=== PATIENT | female | born 1955 | race Caucasian/White ===

== ENCOUNTER 2017-10-09 06:55 | Day surgery (SDC) | payer MEDICARE, OTHER ==
[~2017-10-09] VITALS: Ht 160 cm; Wt 66.7 kg
[~2017-10-09 06:55] MED LIST: AMLODIPINE BESYL5 MG PO; AZATHIOPRINE50 MG; BUSPIRONE HCL5 MG PO; COZAAR50 MG PO; ECPIRIN325 MG PO; EVZIO0.4 MG/0.4; HYDROXYCHLOROQ200 MG PO; LASIX40 MG PO; METOPROLOL SUC100 MG PO; MORPHINE SULFAT30 M2; MS CONTIN15 MG PO; PREDNISONE10 M1 PO; VITAMIN D400 UNIT PO; XANAX0.5 MG PO
--- NOTE | 2017-10-09 11:19 | NUR ---
10/09/17 1119 Milady Sands 1112 PATIENT ARRIVES TO PACU AWAKE, ALERT AND ORIENTED X3. RESP EVEN AND UNLABORED, ON ROOM AIR. PATIENT DENIES PAIN AND NAUSEA.
--- NOTE | 2017-10-10 08:29 | OR ---
[facility] [address], [place] [address] Signed DATE OF OPERATION: 10/09/2017 SURGEON: Trista Palomo MD PREOPERATIVE DIAGNOSES: 1. Multiple fungating skin lesions including right inner upper thigh x3. 2. Systemic lupus erythematosus. 3. Chronic immunosuppression. POSTOPERATIVE DIAGNOSES: 1. Multiple fungating skin lesions including right inner upper thigh x3. 2. Systemic lupus erythematosus. 3. Chronic immunosuppression. PROCEDURE: Excision of 3 upper inner right skin lesions. INDICATIONS: Razia is a 62-year-old female, who has had lupus for many years and has been on immunosuppression. As a result, she has multiple fungating skin lesions. I removed quite a number of them in her left groin previously and of course it came back squamous cell carcinoma. Her chief client officer lives about an hour away, so she asked if I could help her here locally and remove various skin lesions over time. She had 3 in the right upper inner thigh next to the groin crease and they are quite troublesome. She wanted me to excise those as well. She came today for her gynecologic procedure with Dr. Liu and therefore, I was asked to come in afterwards to excise those 3 lesions while she was under anesthetic. Razia is very aware of the elliptical incisions required to remove the lesions. She understands there is risk including, but not limited to, bleeding, infection, scarring, change in contour of the skin as well as possible need for additional surgery and/or remove other lesions. She had expressed understanding and wished to proceed. PROCEDURE NOTE: Razia was already in the prepped and draped in the lithotomy position. After Dr. Liu surgery was completed, I had scrubbed in for her skin lesions that Razia and I had identified those in the preop area and circled those appropriately. There were easily identified once again. Local anesthetic was injected in and underneath the lesions. Three elliptical incisions were utilized obliquely to remove those lesions full thickness and sent off to the Pathology Department separately. The skin and dermis were then closed with interrupted 3-0 subcuticular Monocryl sutures. Dry gauze and tape were Electronically Signed By: TRISTA PALOMO MD 10/10/17 0829 PATIENT NAME: RAZIA THURMAN OPERATIVE REPORT DATE OF : 55 REPORT #: [id number] PHYSICIAN: TRISTA PALOMO MD PCP: ESTEFANY ASHRAF REPORT IS CONFIDENTIAL AND NOT TO BE RELEASED WITHOUT AUTHORIZATION [address] [address] Signed then applied. One incision was about a centimeter wide. The other 2 were about 5 to 7 mm wide. After this, the procedure was terminated and I scrubbed out of the case. MD KAREEM Sanchez/GASTONL /[id number] cc: MD Trista Sweeney MD James D Ward [facility] Tomy Luna MD Copies: YAEL BILL MD, ANDREW L MD WARD, JAMES D DO QUACKENBUSH, ROBERT C MD ~ Electronically Signed By: TRISTA PALOMO MD 10/10/17 0829 PATIENT NAME: RAZIA THURMAN JEAN OPERATIVE REPORT DATE OF : 55 REPORT #: [id number] PHYSICIAN: TRISTA PALOMO MD PCP: ESTEFANY ASHRAF REPORT IS CONFIDENTIAL AND NOT TO BE RELEASED WITHOUT AUTHORIZATION
--- NOTE | 2017-10-10 22:47 | EKG ---
[facility] [address] [facility] [place] [address] Signed Poor data quality, interpretation may be adversely affected Normal sinus rhythm Possible Inferior infarct , age undetermined Abnormal ECG No previous ECGs available Confirmed by JEREMY GALLARDO MD ([id number]) on 10/10/2017 10:47:07 PM Electronically Signed By: JEREMY GALLARDO MD 10/10/17 2247 PATIENT NAME: RAZIA THURMAN Electrocardiogram DATE OF : 55 PHYSICIAN: JEREMY GALLARDO MD REPORT #: [id number] REPORT IS CONFIDENTIAL AND NOT TO BE RELEASED WITHOUT AUTHORIZATION
--- NOTE | 2017-10-23 13:12 | OR ---
[facility] [address] [place], [place] [address] Signed DATE OF OPERATION: 10/09/2017 SURGEON: Eric Liu DO PREOPERATIVE DIAGNOSES: 1. History of abnormal Pap with positive human papillomavirus. 2. Failed colposcopy in the office. 3. Left labial lesion. 4. Vulvar lesion. 5. Systemic lupus. POSTOPERATIVE DIAGNOSES: 1. History of abnormal Pap with positive human papillomavirus. 2. Failed colposcopy in the office. 3. Left labial lesion. 4. Vulvar lesion. 5. Systemic lupus. PROCEDURES PERFORMED: 1. Exam under anesthesia. 2. Colposcopy with cervical biopsies and ECC. 3. Left labial biopsy. 4. Vulvar biopsy. ANESTHESIA: MAC. ESTIMATED BLOOD LOSS: 10 mL. SPECIMENS: 1. Pap. 2. Cervical biopsies at 2, 4, 8 and 10 o'clock submitted individually. 3. Endocervical curettage. 4. Left labial biopsy. 5. Vulvar biopsy near the introitus at 7 o'clock. FINDINGS: Normal appearing cervix on colposcopy. The vagina is atrophic with good support. The cervix is actually able to be visualized without too much difficulty with conscious Electronically Signed By: ERIC LIU DO 10/23/17 1312 PATIENT NAME: RAZIA MONREAL OPERATIVE REPORT DATE OF : 55 REPORT #: [id number] PHYSICIAN: ERIC LIU DO PCP: ESTEFANY ASHRAF REPORT IS CONFIDENTIAL AND NOT TO BE RELEASED WITHOUT AUTHORIZATION [facility] [address] [place], [place] [address] Signed sedation. Again, the cervix appeared normal with minimal acetowhite changes at 2 o'clock. No punctation, mosaicism, or other concerning lesions noted due to the history and difficulty of the exam. ECC and four-quadrant cervical biopsies were obtained as well as a repeat Pap. Left labia minora with lesion and vulvar plaque near the introitus at 7 o'clock, approximately 1 cm in diameter, biopsied in total. The patient also has a right groin lesion. Please see Dr. Ramirez's documentation for that. The patient would be a good candidate for a LEEP if that is required. COMPLICATIONS: None. INDICATIONS: Ms. Monreal is a pleasant 62-year-old female with a history of SLE with chronic immunosuppression. She had an abnormal Pap in 2004, that showed low-grade changes. She did not have a repeat Pap done until 2018, which was very difficult per her nurse practitioner, but returned no abnormal cells and HPV 16 positive. Colposcopy was attempted in the office, but due to her history of hip pain and benign hip mass, she was unable to tolerate this in the office. At that time, a colposcopy was also noted that she had a white plaque at the introitus at 7 o'clock and an abnormal lesion on the tip of the left labia. She was consented for exam under anesthesia, colposcopy and biopsies of vulvar introitus. Risks, benefits, and alternatives were discussed in detail with the patient. The patient understands and wishes to proceed with the procedure. TECHNIQUE: The patient was taken to the operating room where a time-out was performed to confirm correct patient, correct procedure. Ancef 2 g preoperatively were given per Dr. Ramirez's order as he is also performing an excision of a right groin lesion. No heparin was indicated. ICPs were on and running. The patient was positioned while she was still awake and maximal comfort with her left leg with no internal or external rotation. Her right leg is able to externally rotate and flex, and the patient was comfortable with this positioning prior to induction of MAC. Positioning was unchanged throughout the procedure. The perineum and vagina were prepped with Betadine and attention was turned to the colposcopy. A narrow Graves speculum was placed in the vagina and the cervix was visualized. No masses or lesions noted on the cervix. Acetic acid was applied to the cervix and very minimal acetowhite changes were noted at 2 o'clock. No high-grade lesions or acetowhite changes were noted. There was no mosaicism or punctuation or again other high-risk changes noted. A repeat Pap was performed as the nurse practitioner obtained this was unsure if she was able to get a good sample. Decision was made given the patient's complex medical history as well as the difficulty of in-office evaluation to perform cervical biopsies in four quadrants randomly. These were performed at 2, 4, 8 and 10 o'clock and were Electronically Signed By: ERIC LIU DO 10/23/17 1312 PATIENT NAME: RAZIA MONREAL OPERATIVE REPORT DATE OF : 55 REPORT #: [id number] PHYSICIAN: ERIC LIU DO PCP: ESTEFANY ASHRAF REPORT IS CONFIDENTIAL AND NOT TO BE RELEASED WITHOUT AUTHORIZATION [address] [address] Signed each submitted individually. Lugol's was applied to the cervix and upper vagina. No additional lesions were noted. Monsel's solution was applied to the cervix and good hemostasis was appreciated. The speculum was removed and attention was turned to the vulvar lesion. A 1 cm vulvar lesion was noted at 7 o'clock near the introitus. A 0.25% Marcaine with epinephrine was infiltrated here and at the left labia and the lesion was grasped, elevated, and removed using a needlepoint cautery with approximately 5 mm margins. Good hemostasis was appreciated and the wound was closed in two layers with 3-0 Vicryl with good hemostasis and cosmesis. Attention was then turned to the left labia, which had been previously infiltrated with local anesthetic. The tip of the left labia was examined and again found to be abnormal and this was removed using needlepoint electrocautery with good hemostasis. A stitch of 3-0 Vicryl in a running locked manner was applied with again good hemostasis and no sign of hematoma or other abnormality. Sponge, needle, and instrument count were correct at the end of the procedure. Dr. Ramirez then presented for his portion of the procedure. Please see his documentation. Eric Liu DO JDW/MODL /[id number] Copies: ~ Electronically Signed By: ERIC LIU DO 10/23/17 1312 PATIENT NAME: RAZIA MONREAL OPERATIVE REPORT DATE OF : 55 REPORT #: [id number] PHYSICIAN: ERIC LIU DO PCP: ESTEFANY ASHRAF REPORT IS CONFIDENTIAL AND NOT TO BE RELEASED WITHOUT AUTHORIZATION
== END 2017-10-09 12:05 | disposition home or self-care (01) ==
LOC: DS 06:55 → OPS 06:55 → DS 08:45 → OPS 12:05
PROVIDERS: Colon & Rectal Surgery; Obstetrics & Gynecology
PROC: 0UBC8ZX Excision of Cervix, Via Natural or Artificial Opening Endoscopic, Diagnostic (ICD-10-PCS; principal; 2017-10-09 08:45)
PROC: 0UBMXZX Excision of Vulva, External Approach, Diagnostic (ICD-10-PCS; 2017-10-09 08:45)
PROC: 0HBHXZZ Excision of Right Upper Leg Skin, External Approach (ICD-10-PCS; 2017-10-09 08:45)
DX: N90.3 Dysplasia of vulva, unspecified (principal); N72 Inflammatory disease of cervix uteri; R87.810 Cervical high risk human papillomavirus (HPV) DNA test positive; R87.610 Atypical squamous cells of undetermined significance on cytologic smear of cervix (ASC-US); L57.0 Actinic keratosis; Z85.828 Personal history of other malignant neoplasm of skin; Z66 Do not resuscitate; F41.9 Anxiety disorder, unspecified; G89.29 Other chronic pain; M81.0 Age-related osteoporosis without current pathological fracture; M32.9 Systemic lupus erythematosus, unspecified; F17.210 Nicotine dependence, cigarettes, uncomplicated; F32.9 Major depressive disorder, single episode, unspecified; M19.90 Unspecified osteoarthritis, unspecified site; Z88.2 Allergy status to sulfonamides; Z88.8 Allergy status to other drugs, medicaments and biological substances; Z79.52 Long term (current) use of systemic steroids; Z79.899 Other long term (current) drug therapy
CPT/HCPCS: 00940; 88305; 93005; 93010; J0690; J1720; J1885; J2250; J2405; J2704; J3010; J7120

== ENCOUNTER 2018-09-01 10:37 | Emergency (ER) | payer MEDICARE, MEDICAID ==
[~2018-09-01] VITALS: Ht 160 cm; Wt 66.7 kg
--- OUTSIDE RECORDS SUMMARY | 2018-09-01 10:40 | XMS ---
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 Babar has no Care Guidelines for this patient. Raquel VISIT COUNT (12 MO.) 1 [facility] TOTAL 1 NOTE: Visits indicate total known visits. ED/C VISIT TRACKING (12 MO.) 09/01/2018 10:38 [facility] [place] TYPE: Emergency COMPLAINT: - DIFFICULTY BREATHING INPATIENT VISIT TRACKING (12 MO.) No inpatient visits to display in this time frame [id number]
[2018-09-01] MEDS ORDERED: ZOFRAN4 MG PO (11:06)
[2018-09-01] MEDS ORDERED: VISTARIL25 MG PO (11:08)
[2018-09-03] MEDS ORDERED: PROMETHAZI6.25 MG/5 PO (14:11)
== END 2018-09-01 13:28 | disposition home or self-care (01) ==
LOC: ED 10:37
DX: C76.3 Malignant neoplasm of pelvis (principal); R18.8 Other ascites; E86.0 Dehydration; I10 Essential (primary) hypertension; F17.200 Nicotine dependence, unspecified, uncomplicated; Z88.2 Allergy status to sulfonamides; Z88.8 Allergy status to other drugs, medicaments and biological substances; Z79.899 Other long term (current) drug therapy; Z79.891 Long term (current) use of opiate analgesic
CPT/HCPCS: 71045; 80053; 81001; 85025; 96361; 96374; 99284-25; J2405; J7040

== ENCOUNTER 2018-09-11 20:18 | Inpatient (IN) | payer MEDICARE, MEDICAID ==
[~2018-09-11] VITALS: Ht 160 cm; Wt 65.0 kg
--- OUTSIDE RECORDS SUMMARY | ~2018-09-11 | XMS | Encounter Summary ---
Demographics + + + | Address | [address] | | | [place] [address] | + + + | Home Phone | | + + + | Preferred Language | Unknown | + + + | Marital Status | Single | + + + | Denominational Affiliation | Unknown | + + + | Race | Unknown | + + + | Ethnic Group | Unknown | + + + Author + + + | Author | [facility] [employer] | + + + | Organization | [facility] [employer] | + + + | Address | Unknown | + + + | Phone | Unavailable | + + + Support + + +---------+ + | Name | Relationship | Address | Phone | + + +---------+ + | Luis Daniel Monreal | ECON | Unknown | | + + +---------+ + | Kiah Medina | ECON | Unknown | | + + +---------+ + Care Team Providers + +------+ + | Care Snuff Container Inspector Name | Role | Phone | + +------+ + | Zeeshan Carlson MD | PCP | | + +------+ + Reason for Visit + + + | Reason | Comments | + + + | Labs Only | 09/01/18 Dr. Kia Callahan | + + + Encounter Details +--------+ + + + + | Date | Type | Department | Care Team | Description | +--------+ + + + + | 09/02/ | Documentati | [facility] | Rad | Rolando Only (09/01/18 | | 2019 | on Only | [place] [address] | [address] | Dr. Kia Callahan) | | | | [address] | | | | | | [place] [address] | | | | | | [phone] | | | +--------+ + + + + Social History + +-------+ +--------+------+ | Tobacco Use | Types | Packs/Day | Years | Date | | | | | Used | | + +-------+ +--------+------+ | Former Smoker | | | | | + +-------+ +--------+------+ + +---+---+---+ | Smokeless Tobacco: | | | | | Never Used | | | | + +---+---+---+ + + +---------+ + | Alcohol Use | Drinks/We | oz/Week | Comments | | | ek | | | + + +---------+ + | No | | | | + + +---------+ + + + + | Sex Assigned at | Date Recorded | | | | + + + | Not on file | | + + + as of this encounter Plan of Treatment +--------+---------+ + + + | Date | Type | Specialty | Care Team | Description | +--------+---------+ + + + | 12/11/ | Office | Nephrology | Kalpesh Lester, | | | 2019 | Visit | | [facility] | | | | | | [address] | | | | | | [place] [address] | | | | | | [phone] | | | | | | | | +--------+---------+ + + + as of this encounter Procedures + +--------+ + + + | Procedure Name | Priori | Date/Time | Associated Diagnosis | Comments | | | ty | | | | + +--------+ + + + | PROTEIN / CREATININE | Routin | 09/01/2018 | | Results for this | | RATIO, URINE | e | 11:30 AM | | procedure are in the | | | | PST | | results section. | + +--------+ + + + | URINE MICROSCOPIC | Routin | 09/01/2018 | | Results for this | | ONLY | e | 11:30 AM | | procedure are in the | | | | PST | | results section. | + +--------+ + + + | CBC W/AUTO DIFF | Routin | 09/01/2018 | | Results for this | | (REFLEX TO MANUAL) | e | 11:30 AM | | procedure are in the | | | | PST | | results section. | + +--------+ + + + | COMPREHENSIVE | Routin | 09/01/2018 | | Results for this | | METABOLIC PANEL | e | 11:30 AM | | procedure are in the | | | | PST | | results section. | + +--------+ + + + in this encounter Results Comprehensive metabolic panel (09/01/2018 11:30 AM) + +---------+ + + | Component | Value | Ref Range | Performed At | + +---------+ + + | GLUCOSE | 154 (A) | 70 - 100 mg/dL | | + +---------+ + + | BUN | 27 (A) | 6 - 23 mg/dL | | + +---------+ + + | CREATININE | 1.03 | 0.70 - 1.25 mg/dL | | + +---------+ + + | BUN/CREAT | 26.2 | 6.0 - 28.6 | | + +---------+ + + | CALCIUM | 9.1 | 8.5 - 10.3 mg/dL | | + +---------+ + + | TOTAL PROTEIN | 7.1 | 6.0 - 8.3 g/dL | | + +---------+ + + | Albumin | 3.5 | 3.5 - 5.0 | | + +---------+ + + | GLOBULIN | 3.6 (A) | 1.8 - 3.5 | | + +---------+ + + | A/G | 1.0 (A) | 1.1 - 2.4 | | + +---------+ + + | TBIL | 0.5 | 0.0 - 1.2 | | + +---------+ + + | ALK PHOS | 73 | 31 - 130 | | + +---------+ + + | ALT | 29 | 7 - 52 U/L | | + +---------+ + + | AST | 44 (A) | 13 - 39 U/L | | + +---------+ + + | SODIUM | 141 | 132 - 143 mmol/L | | + +---------+ + + | POTASSIUM | 3.4 (A) | 3.6 - 5.1 mmol/L | | + +---------+ + + | CHLORIDE | 101 | 95 - 112 mmol/L | | + +---------+ + + | CO2 | 26 | 19 - 31 mmol/L | | + +---------+ + + | ANION GAP AGAP | 17.4 | 7 - 21 mmol/L | | + +---------+ + + | EGFR | 54 (A) | 60 - 140 mg/dL | | + +---------+ + + + + | Specimen | + + | Blood | + + CBC W/Auto Diff (Reflex to Manual) (09/01/2018 11:30 AM) + + + + + | Component | Value | Ref Range | Performed At | + + + + + | WBC | 20.4 (A) | 4.5 - 11.0 10^3/mL | | + + + + + | RBC | 4.30 | 3.8 - 5.1 10^6/ L | | + + + + + | HGB | 12.7 | 12.0 - 16.0 g/dL | | + + + + + | HCT | 38.4 | 35 - 45 % | | + + + + + | MCV | 89.4 | 81 - 99 fL | | + + + + + | MCH | 30 | 27 - 33 pg | | + + + + + | MCHC | 33 | 30 - 36 g/dL | | + + + + + | PLT | 248 | 140 - 440 K/ L | | + + + + + | RDW SD | 13.6 | 10.5 - 15.0 % | | + + + + + | MPV | | fL | | + + + + + | DIFF TYPE | | | | + + + + + | NEUTROPHILS | 77 | 39 - 80 % | | + + + + + | LYMPHOCYTES | 9 (A) | 24 - 44 % | | + + + + + | MONOCYTES | 3 | 0 - 12 % | | + + + + + | EOSINOPHILS | 0 | 0 - 6 % | | + + + + + | BASOPHILS | 0 | 0 - 2 % | | + + + + + | NEUTROPHILS ABS | | / L | | + + + + + | LYMPHOCYTES ABS | | / L | | + + + + + | MONOCYTES ABS | | / L | | + + + + + | EOSINOPHILS ABS | | / L | | + + + + + | BASOPHILS ABS | | / L | | + + + + + + + | Specimen | + + | Blood | + + Urine microscopic only (09/01/2018 11:30 AM) + + + + + | Component | Value | Ref Range | Performed At | + + + + + | COLOR UA | Yellow | | | + + + + + | CLARITY | Clear | | | + + + + + | Specific [place], UA | 1.015 | 1.005 - 1.030 | | + + + + + | LEUKOCYTE ESTERASE | Trace | | | + + + + + | NITRITE | Negative | | | + + + + + | UROBILINOGEN | Normal | | | + + + + + | PROTEIN | TraceComment: 30 | | | + + + + + | PH,URINE | 6 | 5 - 9 | | + + + + + | BLOOD | Negative | | | + + + + + | KETONES | Negative | | | + + + + + | BILIRUBIN | Negative | | | + + + + + | GLUCOSE | Negative | | | + + + + + + + | Specimen | + + | Urine | + + Protein / creatinine ratio, urine (09/01/2018 11:30 AM) + + + + + | Component | Value | Ref Range | Performed At | + + + + + | UR | 473.5 (A) | 0 - 150 | | | PROTEIN/CREATININE | | | | + + + + + + + | Specimen | + + | Urine - Urine, | | Unspecified Source | + + in this encounter Visit Diagnoses Not on filein this encounter"
--- OUTSIDE RECORDS SUMMARY | ~2018-09-11 | XMS | Encounter Summary ---
Demographics + + + | Address | [address] | | | [place] [address] | + + + | Home Phone | | + + + | Preferred Language | Unknown | + + + | Marital Status | Single | + + + | Mandaen Affiliation | Unknown | + + + | Race | Unknown | + + + | Ethnic Group | Unknown | + + + Author + + + | Author | [facility] [employer] | + + + | Organization | [facility] [employer] | + + + | Address [...] Team Providers + +------+ + | Care Excellence Specialist Name | Role | Phone | + [...] | | 2019 | on Only | [place] [address] | Dr. Kia Callahan) | | | | [address] | | | | | | [place] [address] | | | | | | [phone] | | | +--------+ + + + [...] [address] | | | | | | [place] [address] | | | | | | [phone] | | | | | | | [...] + + + + + | Specific [place], UA | 1.015 | 1.005 - 1.030 [...]
--- OUTSIDE RECORDS SUMMARY | ~2018-09-11 | XMS | Encounter Summary ---
Demographics + + + | Address | [address] | | | [place] [address] | + + + | Home Phone | | + + + | Preferred Language | Unknown | + + + | Marital Status | Single | + + + | Roman Catholic Affiliation | Unknown | + + + | Race | Unknown | + + + | Ethnic Group | Unknown | + + + Author + + + | Author | [facility] [employer] | + + + | Organization | [facility] [employer] | + + + | Address [...] Team Providers + +------+ + | Care Bicycle Assembler Name | Role | Phone | + [...] | | 2019 | on Only | [place] [address] | Dr. Kia Callahan) | | | | [address] | | | | | | [place] [address] | | | | | | [phone] | | | +--------+ + + + [...] [address] | | | | | | [place] [address] | | | | | | [phone] | | | | | | | [...] + + + + + | Specific [place], UA | 1.015 | 1.005 - 1.030 [...]
--- OUTSIDE RECORDS SUMMARY | ~2018-09-11 | XMS | Clinical Summary ---
Demographics + + + | Address | [address] | | | [place] [address] | + + + | Home Phone [...] Author + + + | Author | [facility] [employer] [facility] | + + + | Organization | [facility] [employer] [facility] | + + + | Address | Unknown | + + + | Phone | Unavailable | + + + Support + + +---------+ + | Name | Relationship | Address | Phone | + + +---------+ + | Luis Daniel Thurman | ECON | Unknown | | + + +---------+ + | Kiah Medina | ECON | Unknown | | + + +---------+ + Care Team Providers + +------+ + | Care Studio Designer Name | Role | Phone | + +------+ + | Zeeshan Carlson MD | PP | | + +------+ + Allergies + + + + + + | Active Allergy | Reactions | Severity | Noted | Comments | | | | | Date | | + + + + + + | Alendronate | Other (See Comments) | Medium | 10/08/19 | Bone pain | | | | | 17 | | + + + + + + | Sulfa Antibiotics | Other (See Comments) | Medium | 10/08/19 | Flare ups | | | | | 17 | | + + + + + + Current Medications + + +--------+---------+------+------+-------+ | Prescription | Sig. | Disp. | Refills | Star | End | Statu | | | | | | t | Date | s | | | | | | Date | | | + + +--------+---------+------+------+-------+ | BUSPIRONE HCL PO | Take 15 mg by mouth | | | | | Activ | | | 2 (two) times daily. | | | | | e | + + +--------+---------+------+------+-------+ | nicotine | Take 2 mg by mouth | | | | | Activ | | polacrilex | as needed for | | | | | e | | (NICORETTE) 2 MG gum | Smoking cessation. | | | | | | + + +--------+---------+------+------+-------+ | predniSONE | Take 2.5 mg by mouth | | | | | Activ | | (DELTASONE) 2.5 MG | 3 (three) times | | | | | e | | tablet | daily. | | | | | | + + +--------+---------+------+------+-------+ | Cholecalciferol | Take 2,000 Units by | | | | | Activ | | 2000 UNITS CAPS | mouth daily. | | | | | e | + + +--------+---------+------+------+-------+ | hydroxychloroquine | Take 200 mg by mouth | | | | | Activ | | (PLAQUENIL) 200 MG | 2 (two) times | | | | | e | | tablet | daily. | | | | | | + + +--------+---------+------+------+-------+ | furosemide (LASIX) | Take 40 mg by mouth | | | 12/0 | | Activ | | 40 MG tablet | daily. | | | 5/20 | | e | | | | | | 17 | | | + + +--------+---------+------+------+-------+ | losartan (COZAAR) | Take 50 mg by mouth | | | 11/3 | | Activ | | 50 MG tablet | daily. | | | 0/20 | | e | | | | | | 17 | | | + + +--------+---------+------+------+-------+ | metoprolol | TAKE 1 TABLET BY | 90 | 3 | 04/0 | | Activ | | (TOPROL-XL) 50 MG 24 | MOUTH DAILY | tablet | | 6/20 | | e | | hr tablet | | | | 18 | | | + + +--------+---------+------+------+-------+ | morphine (MS | | | | 11/2 | | Activ | | CONTIN) 30 MG 12 hr | | | | 7/20 | | e | | tablet | | | | 18 | | | + + +--------+---------+------+------+-------+ Active Problems + + + | Problem | Noted Date | + + + | Hypokalemia | 05/27/2018 | + + + | CKD (chronic kidney disease) stage 2, GFR 60-89 ml/min | 05/27/2018 | + + + | Nephrolithiasis | 10/07/2016 | + + + | Essential hypertension, benign | 10/07/2016 | + + + | Vitamin D deficiency | 10/07/2016 | + + + Encounters +--------+ + + + + | Date | Type | Specialty | Care Team | Description | +--------+ + + + + | 09/02/ | Documentati | | Rad, | Labs Only (09/01/18 | | 2019 | on Only | | [facility] | Dr. Kia Callahan) | +--------+ + + + + from Last 3 Months Immunizations + + + + | Name | Dates Previously Given | Next Due | + + + + | Influenza, Trivalent | 04/17/2005, 04/19/2004, 04/11/2003, | | | W/Preservative | 06/04/2002 | | + + + + | Pneumococcal | 04/19/2004 | | | Polysaccharide | | | | 23-valent | | | + + + + | Tdap | 01/29/2012 | | + + + + Family History + + +------+ + | Medical History | Relation | Name | Comments | + + +------+ + | Cancer | Mother | | Colon | + + +------+ + | Cancer | Sister | | Breast | + + +------+ + + +------+ + + | Relation | Name | Status | Comments | + +------+ + + | Father | | | | + +------+ + + | Mother | | | | + +------+ + + | Sister | | Alive | | + +------+ + + Social History + +-------+ +--------+------+ [...] on file | | + + + Last Filed Vital Signs + + + + | Vital Sign | Reading | Time Taken | + + + + | Blood Pressure | 128/84 | 05/27/2018 2:41 PM PST | + + + + | Pulse | 79 | 05/27/2018 2:41 PM PST | + + + + | Temperature | 36.8 C (98.3 F) | 12/10/2017 2:23 PM PDT | + + + + | Respiratory Rate | - | - | + + + + | Oxygen Saturation | 98% | 05/27/2018 2:41 PM PST | + + + + | Inhaled Oxygen | - | - | | Concentration | | | + + + + | Weight | 66.1 kg (145 lb 12.8 | 05/27/2018 2:41 PM PST | | | oz) | | + + + + | Height | 160 cm (5' 3") | 05/27/2018 2:41 PM PST | + + + + | Body Mass Index | 25.83 | 05/27/2018 2:41 PM PST | + + + + Plan of Treatment +--------+---------+ + + + | Date | Type | Specialty | Care Team | Description | +--------+---------+ + + + | 12/11/ | Office | | Kalpesh Lester, | | | 2019 | Visit | | [facility] | | | | | | [address] | | | | | | [place] [address] | | | | | | [phone] | | | | | | | | +--------+---------+ + + + + + + + + | Health Maintenance | Due Date | Last Done | Comments | + + + + + | Cervical Cancer | | | | | Screening (Pap) | 5 | | | + + + + + | Breast Cancer | | | | | Screening | 5 | | | | (Mammogram) | | | | + + + + + | Colon Cancer | | | | | Screening | 5 | | | | (Colonoscopy) | | | | + + + + + | Vaccine: Zoster (1 | | | | | of 2) | 5 | | | + + + + + | Vaccine: Influenza | | 04/17/2005, 04/19/2004, | | | (#1) | 8 | 04/11/2003, Additional history | | | | | exists | | + + + + + | Vaccine: | | 01/29/2012 | | | Dtap/Tdap/Td (2 - | 2 | | | | Td) | | | | + + + + + Procedures + +--------+ + + + | [...] section. | + +--------+ + + + from Last 3 Months Results Protein / creatinine ratio, urine (09/01/2018 11:30 [...] | | Unspecified Source | + + Urine microscopic only (09/01/2018 11:30 AM) + + + + + | Component | Value | Ref Range | Performed At | + + + + + | COLOR UA | Yellow | | | + + + + + | CLARITY | Clear | | | + + + + + | Specific [place], [place] | 1.015 | 1.005 - 1.030 [...] + + | Urine | + + CBC W/Auto Diff (Reflex [...] + + | Blood | + + Comprehensive metabolic panel (09/01/2018 11:30 AM) + [...] + + | Blood | + + from Last 3 Months Insurance + +--------+ +------+-------+ + | Payer | Benefi | Subscriber | Type | Phone | Address | | | t Plan | ID | | | | | | / | | | | | | | Group | | | | | + +--------+ +------+-------+ + | MEDICARE | MEDICA | [id number] | | | [address] | | | RE | | | | [place] [address] | | | IP-OP | | | | | + +--------+ +------+-------+ + + +--------+ +--------+ + + | Guarantor Name | Accoun | Relation to | Date | Phone | Billing Address | | | t Type | Patient | of | | | | | | | | | | + +--------+ +--------+ + + | RAZIA THURMAN | Person | Self [birth year] Home: | [address] | | | al/Fam | | 1955 | [phone] | [place] | | | l[place] | | | [phone] | [phone] | + +--------+ +--------+ + +
--- OUTSIDE RECORDS SUMMARY | ~2018-09-11 | XMS | Clinical Summary ---
Demographics + + + | Address | [address] | | | [place] [address] | + + + | Home Phone | | + + + | Preferred Language | Unknown | + + + | Marital Status | Single | + + + | Buddhism Affiliation | Unknown | + + + | Race | Unknown | + + + | Ethnic Group | Unknown | + + + Author + + + | Author | [facility] [facility] | + + + | Organization | [facility] [employer] | + + + | Address [...] Team Providers + +------+ + | Care List Of [employer] Name | Role | Phone | + [...] [address] | | | | | | [place] [address] | | | | | | [phone] | | | | | | | [...] + + + + + | Specific [place], [place] | 1.015 | 1.005 - 1.030 [...] +------+-------+ + | MEDICARE | MEDICA | [id number] | | | [address] | | | RE | | | | [place] [address] | | | IP-OP | | | [...] | | al/Fam | | 1955 | [phone] | [place] | | | l[place] | | | [address] | [phone] | + +--------+ +--------+ + +
--- OUTSIDE RECORDS SUMMARY | ~2018-09-11 | XMS | Clinical Summary ---
Demographics + + + | Address | [address] | | | [place] [address] | + + + | Home Phone | | + + + | Preferred Language | Unknown | + + + | Marital Status | Single | + + + | Denominational Affiliation | Unknown | + + + | Race | Unknown | + + + | Ethnic Group | Unknown | + + + Author + + + | Author | [facility] [facility] | + + + | Organization | [facility] [employer] [facility] | + + + | Address [...] Team Providers + +------+ + | Care Pulverizer Name | Role | Phone | + [...] [address] | | | | | | [place] [address] | | | | | | [phone] | | | | | | | [...] + + + + + | Specific [place], [place] | 1.015 | 1.005 - 1.030 [...] +------+-------+ + | MEDICARE | MEDICA | [id number] | | | [address] | | | RE | | | | [place] [address] | | | IP-OP | | | [...] | [place] | | | [address] | [phone] | + +--------+ +--------+ + +
[~2018-09-11 20:18] MED LIST changes: -MORPHINE SULFAT30 M2; +MORPHINE SULFAT30 M2 PO; +PROMETHAZI6.25 MG/5 PO; +VISTARIL25 MG PO; +ZOFRAN4 MG PO
--- OUTSIDE RECORDS SUMMARY | 2018-09-11 20:20 | XMS ---
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 Care History Medical/Surgical 09/02/2018 [facility] - Patient is currently established with [facility]. If patient is seen in the ED during business hours. Please contact [facility] at [facility]. Care Recommendation: This patient has had 5 or more Emergency Department visits in the last 12 months.\T\nbsp; Patient requires education on the scope and purpose of the ED as an acute care provider not a Primary Care Provider and should not be utilized for chronic conditions.\T\nbsp; These are guidelines and the provider should exercise clinical judgment when providing care. E.D. VISIT COUNT (12 MO.) 3 [facility] TOTAL 3 NOTE: Visits indicate total known visits. ED/UCC VISIT TRACKING (12 MO.) 09/11/2018 20:18 [facility] [place] TYPE: Emergency COMPLAINT: - NAUSEA 09/03/2018 10:24 [facility] [place] TYPE: Emergency COMPLAINT: - VOMITING DIAGNOSES: - Diaphragmatic hernia without obstruction or gangrene - Nicotine dependence, unspecified, uncomplicated - Secondary malignant neoplasm of unspecified lung - Other mcc (current) drug therapy - Vomiting, unspecified - Systemic lupus erythematosus, unspecified - Allergy status to sulfonamides status - Essential (primary) hypertension - Dehydration - Allergy status to other drugs, medicaments and biological substances status - Squamous cell carcinoma of skin of other part of trunk 09/01/2018 10:[address] [facility] [place] TYPE: Emergency COMPLAINT: - DIFFICULTY BREATHING DIAGNOSES: - nursing home (current) use of opiate analgesic - Dehydration - Essential (primary) hypertension - Allergy status to other drugs, medicaments and biological substances status - Allergy status to sulfonamides status - Malignant neoplasm of pelvis - Other mcc (current) drug therapy - Epigastric pain - Nicotine dependence, unspecified, uncomplicated - Other ascites INPATIENT VISIT TRACKING (12 MO.) No inpatient visits to display in this time frame [id number]
--- NOTE | 2018-09-12 02:25 | NUR ---
PT ARRIVED TO THE FLOOR, ASSISTED TO BED WITH SE MOE AND KIMBERLY SMITH, PT TOLERATED WELL, PT AOX4, APPROPRIATE, ASSESSMENT COMPLETE. PT'S IV FLUIDS INFUSING PER EMAR WNL, VSS, PT C/O -01/06 PAIN RELATED TO PT'S LEFT HIP, SWELLING/ 3+ PITTING EDEMA NOTED ON IN PT'S LEFT EXTREMITY, CAP REFILL SLOW, >5 SECONDS, DR. DOLAN NOTIFIED OF PT'S PAIN, RECEIVED ORDER FOR PT TO RECEIVE MORPHINE 15MG PRN BID FOR PAIN, NO OTHER NEW ORDERS. PT'S SKIN DRY, LOWER EXTREMITIES COOL, BRUISING AND ABRASIONS NOTED ON PT'S BLE. LOTION APPLIED TO PT'S LEGS PER REQUEST, NO FURTHER NEEDS AT THIS TIME, CALL LIGHT WITHIN REACH, FALL PRECAUTIONS IN PLACE.
--- NOTE | 2018-09-12 03:00 | NUR ---
PT ASSISTED FROM BED TO BSC WITH 2 PERSON ASSIST, PIVOT TO BSC, TOLERATED WELL, PT VOIDED 50 MLS OF CLEAR DARK YELLOW URINE, PT BACK TO BED, NO REQUESTS AT THIS TIME, CALL LIGHT WITHIN REACH.
--- NOTE | 2018-09-12 03:59 | NUR ---
PT GIVEN PRN PAIN MEDICATION PER EMAR FOR PAIN OF 7/10 RELATED TO LEFT HIP, PT CALLED INITIALLLY AFTER SHE STATED THAT SHE HAD CHOKED ON HER WATER, PT ENCOURAGED TO TAKE SMALL SIPS AND TO TUCK HER CHIN WHEN SWALLOWING. NO FURTHER REQUESTS AT THIS TIME, IV FLUIDS INFUSING PER EMAR WNL, CALL LIGHT WITHIN REACH.
--- NOTE | 2018-09-12 05:34 | NUR ---
UP TO BSC W 2 PA, PIVOTTING TO R SIDE. TOLERATED WELL, VOIDED, BACK TO BED, NO C/O PAIN, CALL LIGHT AND FLUIDS AT BEDSIDE
--- NOTE | 2018-09-12 06:13 | NUR ---
PT C/O NAUSEA, PT GIVEN PRN NAUSEA MEDICATION PER EMAR, TOLERATED WELL, NO FURTHER REQUESTS, IV FLUIDS INFUSING PER EMAR WNL, CALL LIGHT WITHIN REACH.
--- NOTE | 2018-09-12 06:34 | NUR ---
PT AOX4, APPROPRIATE, IV FLUIDS INFUSED PER EMAR WNL, PT GIVEN PRN PAIN MEDICATION X1 SINCE PATIENTS ARRIVAL, PT STATES HER PAIN IS USUALLY AROUND A 6 TO AN 8/10, SEE EMAR, PT ALSO GIVEN PRN NAUSEA MED X1 THIS SHIFT RELATED TO NAUSEA THIS AM, PT 2 PERSON ASSIST RELATED TO PT'S WEAKNESS IN LEFT LEG. VSS, CALLS APPROPRIATELY, ASPIRATION PRECAUTIONS WITH DRINKING, CLEAR LIQUID DIET.
--- NOTE | 2018-09-12 07:44 | NUR ---
Report recieved from Luis SAEZ. Pt sleeping at this time, call fierro within reach.
--- NOTE | 2018-09-12 09:00 | NUR ---
PT ASSISTED TO THE COMMODE WITH 2 PERSON ASSIST. PT TOLERATED FAIR. THE PT'S BEDDING WAS CHANGED IT WET FROM HER RIGHT LEG WEEPING.
--- NOTE | 2018-09-12 10:14 | NUR ---
Pt resting in her bed eating breakfast at this time. She states her nausea is well controlled and that her pain is a 6.5/10 and she declines pain medication at this time.
--- NOTE | 2018-09-12 11:33 | NUR ---
PT NOW STATES HER RIGHT ANKLE IS CAUSING SOME PAIN. THE SITE APPEARS UNCHANGED AND THE PT IS ASKING WHY IT HURTING. PT WAS MEDICATED ORDERED AND DR BURLESON WAS NOTIFIED OF THE PT'S PAIN AND CONDITION.
--- NOTE | 2018-09-12 11:35 | NUR ---
DR BURLESON TO THE ROOM SPEAKING WITH THE PT AT THIS TIME.
--- NOTE | 2018-09-12 12:09 | NUR ---
Pt helped to the commode and was a heavy two person assist. Pt voided and was helped back to bed. Right lower leg continues to weep and the bed was covered with chucks.
[2018-09-12] MEDS ORDERED: OMEPRAZOLE40 MG PO (12:30)
[2018-09-12] MEDS ORDERED: MORPHINE SULFAT15 MG PO (12:31)
[2018-09-12] MEDS ORDERED: PREDNISONE2.5 MG PO (12:33)
[2018-09-12] MEDS ORDERED: BUSPIRONE HCL30 MG PO (12:34)
[2018-09-12] MEDS ORDERED: METOPROLOL SUCC50 MG PO (12:35)
--- NOTE | 2018-09-12 12:51 | NUR ---
PATIENT REPORTS ELBOW CRUTHES WERE WITH HER WHEN SHE ARRIVED WITH EMS. LOOKED THROUGHOUT EMERGENCY ROOM AND IN PATIENT'S ROOM UNABLE TO LOCATE SAID CRUTCHES. CONTACTED EMS CREW THAT PROVIDED CARE TO PATIENT. CREW MEMEBER STATED " BECAUSE OF PATIENT'S DEGREE OF WEAKNESS AND METSTATIC CANCER WAS UNSURE IF PATIENT COULD EVEN USE THEM SO WE LEFT THEM BEHIND. THEY ARE SITTING IN A CORNER AT HER HOUSE". INFORMED PATIENT OF THIS, AND VERBALIZED UNDERSTANDING. PLANS TO HAVE BROTHER BRING THEM IN.
--- NOTE | 2018-09-12 13:38 | NUR ---
PATIENT UP TO [facility], 2 PERSON ASSIST WITH WALKER. PATIENT ABLE TO PIVOT TRANSFER WITH MINIMAL ASSIST. TOLERATED ACTIVITY WELL.
--- NOTE | 2018-09-12 14:16 | NUR ---
MED REC COMPLETE
--- NOTE | 2018-09-12 15:50 | NUR ---
Pt resting in her bed visiting with her brother. She states her pain level is acceptable at this time.
--- NOTE | 2018-09-12 18:06 | NUR ---
PT EATING DINNER AT THIS TIME. SHE STATES SHE IS DOING WELL AND HER CALL JC IS WITHIN REACH.
--- NOTE | 2018-09-12 19:20 | NUR ---
SHIFT REPORT RECEIVED. PATIENT RESTING IN BED WATCHING TV. PATIENT STATES "I'M DOING OKAY RIGHT NOW". DENIES NEEDS. CALL LIGHT IN REACH.
--- NOTE | 2018-09-12 20:54 | NUR ---
DINING ROOM COORDINATOR ROUNDING NOTE. PT RESTING IN BED VISITING WITH BROTHER AT BEDSIDE. PT BOOSTED IN BED. TOLERATED WELL. CALL LIGHT IN REACH. PRIMARY RN REMAINS IN ROOM.
--- NOTE | 2018-09-12 21:00 | NUR ---
PATIENT PROVIDED WITH HER EVENING MEDS. PATIENT'S BROTHER IS AT BEDSIDE. PATIENT RATES PAIN 7/10, SCHEDULED MORPHINE ER PROVIDED. PAIN IS CHRONIC, LEFT LEG/HIP, GROIN, AND ABD. PATIENT'S LUNGS ARE CLEAR. ABD IS MODERATELY DISTENDED, FIRM BUT NONTENDER. BOWEL SOUNDS HYPOACTIVE. BAM LOWER EXTREMITIES 2+ EDEMA, WORSE ON THE LEFT. RIGHT CAGE IS WEEPING, SEROUS FLUID. CHRONIC SIGNS OF POOR CIRCULATION IN BAM LOWER EXTREMITIES. BOTH ELEVATED ON PILLOW. HEEL PROTECTORS IN PLACE. IV FLUIDS PER ORDER, SITE WNL. PATIENT DENIES FURTHER NEEDS. CALL LIGHT IN REACH.
--- NOTE | 2018-09-12 22:00 | NUR ---
PATIENT REQUESTING ZOFRAN, STATES "I LIKE TO KEEP UP ON IT" BUT DENIES NAUSEA. PRN ZOFRAN PROVIDED PER REQUEST. PATIENT UP TO BSC, TOLERATED MODERATELY WELL WITH WALKER AND 1PA STAND PIVOT TO THE BSC. PATIENT BACK TO BED, PHOTOGRAPHY PROFESSOR IN ROOM FOR EVENING CARES.
--- NOTE | 2018-09-13 00:17 | NUR ---
ASSISTED PATIENT UP TO BSC. 1PA STAND PIVOT WITH FWW. PATIENT HAS SOME BALANCE ISSUES, REQUIRES SOME DIRECTION ON PROPER TRANSFER. PATIENT ASSISTED BACK TO BED, LEGS ELEVATED. PATIENT REPORTS BEING COMFORTABLE. CALL LIGHT IN REACH.
--- NOTE | 2018-09-13 03:15 | NUR ---
PATIENT RESTING IN BED. APPEARED TO BE SLEEPING. WOKE EASILY WHEN RN ENTERED ROOM. PATIENT REPORTS PAIN 7/10. DENIES NEED FOR ADDITIONAL PAIN MEDICATION. IF FLUIDS PER ORDER. SITE WNL. PATIENT DENIES TOILETING NEEDS. CALL LIGHT IN REACH.
--- NOTE | 2018-09-13 06:42 | NUR ---
PATIENT SLEPT MOST OF THE SHIFT, HER BROTHER AT BEDSIDE. PATIENT CONSISTENTLY REPORTS 7/10 PAIN WITH SCHEDULED PAIN MEDS, DENIES PRN PAIN MEDS. UP TO BSC WITH 1PA W/FWW. PATIENT IS UNSTEADY AND REQUIRES DIRECTIONS FOR SAFETY. PATIENT IS AAOX4, BUT FREQUENTLY FORGETFUL. IF FLUIDS PER ORDER. URINE OUTPUT QS. VS STABLE. TOLERATING REGULAR DIET, PATIENT REQUESTING PRN ZOFRAN TO REDUCE RETURN OF NAUSEA.
--- NOTE | 2018-09-13 07:39 | NUR ---
BEDSIDE REPORT RECEIVED FROM BARRY SAEZ. THE PT STATES SHE IS DOING WELL AT THIS TIME AND HAS NO NEW COMPLAINTS. CALL JC AND PERSONAL ITEMS IN PLACE.
--- NOTE | 2018-09-13 09:50 | NUR ---
Pt complains of sores in her mouth, white spots are noted. Dr Toribio notified.
--- NOTE | 2018-09-13 10:13 | NUR ---
PT WAS HELPED TO THE COMMODE AND VOIDED. SHE STATES SHE FEELS LIKE SHE NEEDS TO HAVE A BM BUT DID NOT. PT HELPED TO THE RECLINER AND IS SITTING UP AT THIS TIME.
--- NOTE | 2018-09-13 10:33 | NUR ---
AFTER BREAKFAST THE PT HAD 250 OF DARK GREEN EMESIS, SHE STATES THAT THE NAUSEA FEELS THAT THE NAUSEA HAS NOW IMPROVED.
--- NOTE | 2018-09-13 11:39 | NUR ---
Pt resting in her recliner visiting with her brother. She states her nausea and pain are better and at acceptable levels for her.
--- NOTE | 2018-09-13 14:08 | NUR ---
Pt states she has had no BM for 2 days and that she is concerned about. Pt medicated to assist with this. Pt is currently sitting in the commode. Will continue to monitor.
--- NOTE | 2018-09-13 17:57 | NUR ---
Pt eating her dinner and she states she is doing well at this time.
--- NOTE | 2018-09-13 18:50 | NUR ---
Pt states her pain and nausea are under good control at this time. She was assisted to the chair and is now sitting up. She moved with a 1 person assist and tolerated the move well.
--- NOTE | 2018-09-13 19:15 | NUR ---
SHIFT REPORT RECEIVED. PATIENT UP TO THE BSC WITH SPECIAL EDUCATION SUPERVISOR ASSIST. ALLOWED FOR PRIVACY.
--- NOTE | 2018-09-13 20:30 | NUR ---
EVENING MEDS PROVIDED PER ORDER. PATIENT IS AAOX3. HER BROTHER IS IN THE ROOM. PATIENT REPORTS PAIN 7/10 IN HIP/ABD/GROIN. UNCHANGED FROM HER CHRONIC PAIN. LUNGS ARE CLEAR. ABD IS FIRM AND TENDER, BOWEL SOUNDS ACTIVE. PATIENT CONCERNED ABOUT HAVING A BM, BOWEL CARE HAS BEEN STARTED PER DAY SHIFT. IV FLUIDS PER ORDER, SITE FLUSHES WELL. BAM LOWER EXTREMITY EDEMA NOTED, RIGHT LEG IS WEEPING MODERATE AMOUNT OF SEROUS FLUID. ELEAVTING LEGS WHILE IN RECLINER OR BED. PATIENT DENIES ANY FURTHER NEEDS AT THIS TIME. CALL LIGHT IN REACH.
--- NOTE | 2018-09-13 21:00 | NUR ---
CHARGE NURSES ASSISTED PATIENT UP TO BSC. PATIENT ATTEMPTED TO HAVE A BM FOR UP TO 30MINS, THEN RETURNED TO BED WITH ASSIST FROM KIMBERLY SCHMID.
--- NOTE | 2018-09-14 00:10 | NUR ---
PATIENT BACK IN BED WITH ASSIST FROM DIRECTOR HEALTH. PATIENT HAD MEDIUM BM AND REPORTS RELIEF. NEW IV PLACED, DUE TO CURRENT SITE BEING AN EMS START. PATIENT TOLERATED WELL. POSITIONED PATIENT FOR COMFORT IN BED. ELEVATED LEGS ON PILLOWS. LEGS ARE WEEPING SEVERELY. SOCKS REMOVED AND CHUCKS PLACED UNDER LEGS. PATIENT ATTEMPTING TO REST, CALL LIGHT IN REACH.
--- NOTE | 2018-09-14 00:20 | NUR ---
Pt called mutiple times to use the comode. Pt was sitting in her chair and told me she wanted to get into bed, she was accutally wanting to get on to the comode. I got her on to the comode and she voided, she then wanted to get into bed. When she was sitting on the side of the bed she felt like she was going to have a bowel movement, I put the bedpan under her and she had a small soft bm, she called me because she thought she was going to over flow the bed blanchard, she was not. I then moved her back onto the comode, she fineshed having her bm it was small soft with two round peices the size of ping pong ball. I cleaned her up and helped her get back into bed.
--- NOTE | 2018-09-14 02:00 | NUR ---
PATIENT APPEARS TO BE SLEEPING. RR 18. BROTHER IN ROOM. CALL LIGHT IN REACH.
--- NOTE | 2018-09-14 03:46 | NUR ---
HELPED PATIENT USE THE BEDSIDE COMMODE USING WALKER. PATIENT IS BACK IN BED. CALL LIGHT AND TABLE WITHIN REACH.
--- NOTE | 2018-09-14 04:00 | NUR ---
PATIENT RETURNED TO BED WITH OCCUPATIONAL THERAPY CO DIRECTOR ASASSIST. SHE REPORTS PAIN 7/10, DENIES PRN PAIN MEDS. IV FLUIDS PER ORDER. SITE WNL. PADS UNDER LEGS CHANGED, LARGE AMOUNT OF SEROUS FLUID DRAINING. MOSTLY FROM RIGHT LEG. PATIENT POSITIONED WITH LEGS ELEVATED. DENIES FURTHER NEEDS. CALL LIGHT IN REACH.
--- NOTE | 2018-09-14 05:30 | NUR ---
PATIENT APPEARS TO BE SLEEPING. IV FLUIDS PER ORDER, SITE APPEARS WNL. CALL LIGHT IN REACH. ALLOWED PATIENT TO REST.
--- NOTE | 2018-09-14 05:31 | NUR ---
PATIENT WAS ABLE TO HAVE MEDIUM BM THIS SHIFT, WHICH PROVIDED SOME RELIEF IN HER ABD PAIN. NO PRN PAIN MEDS REQUIRED. PATIENT CONSISTENT 7/10 PAIN, WHICH IS HER BASELINE. TOLERATING ROOM AIR. IV FLUIDS PER ORDER, NEW IV SITE. TOLERATING ADEQUATE ORAL INTAKE. NO NAUSEA THIS SHIFT. LOWER EXTREMITIEES HAVE 3+ PITTING EDEMA, SIGNS OF INFECTION, AND SIGNIFICANT AMOUNT OF SEROUS DRAINAGE. 1PA STAND PIVOT TO BSC WITH FWW.
--- NOTE | 2018-09-14 05:54 | NUR ---
ASSISTED PATIENT BACK TO BED AFTER BRICK SETTER OPERATOR ASSISTED HER TO CAMMODE. LAB IN ROOM TO DRAW BLOOD. PATIENT DENIES FURTHER NEEDS. CALL LIGHT IN REACH.
--- NOTE | 2018-09-14 06:00 | NUR ---
PATIENT REQUEST EMESIS BAG WHICH WAS PROVIDED. PATIENT STATES "ITS BECAUSE I DIDN'T GET MY STOMACH PILL AT 5 AM LIKE I DO AT HOME". DISCUSSED PATIENT'S REQUEST YESTERDAY ABOUT HAVING THE ZOFRAN WITH MEALS, WHICH IS HOW IT IS ORDERED. PATIENT BECAME UPSET AND STATES THAT IS NOT WHAT SHE WANTED. OFFERED ZOFRAN NOW. PATIENT REFUSED, STATING "I JUST HAVE TO THROW UP FIRST THEN MAYBE". ALLOWED PATIENT PRIVACY.
--- NOTE | 2018-09-14 06:40 | NUR ---
PATIENT SITTING AT EDGE OF BED. PROVIDED WITH ZOFRAN. PATIENT DID NOT HAVE EMESIS, BUT REPORTS ONGOING NAUSEA. EMESIS BAG IN BAD. CALL LIGHT IN REACH. DENIED FURTHER NEEDS.
--- NOTE | 2018-09-14 07:20 | NUR ---
RECIEVED BEDSIDE REPORT FROM SE REDDY. PT SITTING UP ON BEDSIDE. BROTHER SLEEPING ON COUCH.
--- NOTE | 2018-09-14 09:31 | NUR ---
PT IN BED, BROTHER AT BEDSIDE. PT SPOKE WITH JAGDISH DRAWER UPFITTER, RN, REGARDING DISCHARGE PLANS, WISHES. PT EATING BREAKFAST, TAKING AM MEDICATIONS.
--- NOTE | 2018-09-14 10:00 | NUR ---
SPOKE WITH PATIENT IN ROOM. ALSO SPOKE WITH PATIENTS YRN THURMAN [phone] WHO IS IN ROOM ALSO. PATIENT STATES SHE WANTS TO RETURN HOME WITH HELP. DISCUSSED THAT SHE IS VERY WEAK AND WAS UNABLE TO BE AT HOME ALONE RECENTLY DUE TO ILLNESS AND WEAKNESS. DISCUSSED OPTION OF DOING REHAB STAY FOR STRENGTHENING. SHE WOULD LIKE TO PURSUE THIS. PATIENT IS KNOWN TO ME FROM SEEING HER IN THE ED RECENTLY. SHE IS CURRENTLY WORKING WITH THE NEW [facility] [employer] AND SHE WOULD LIKE SELE[place] TO KNOW SHE IS HERE. PATIENT STILL DOES NOT THINK SHE WANTS "TREATMENT FOR CANCER" BUT DOES WANT TO TRY AND STAY AT HOME. GOAL IS FOR REHAB AND THEN EVAL FROM [facility] FOR POSSIBLE IN-HOME CARE. SHE WOULD LIKE TO USE [facility] FOR REHAB IF POSSIBLE. QUESTIONS ANSWERED. CLINICALS FAXED TO [facility], WITH FAX CONFIRMATION. ALSO CALLED AND LEFT VOICEMAIL FOR [place] WHO IS COVERING FOR ADMITTING AT [facility].
--- NOTE | 2018-09-14 10:37 | NUR ---
PT REPORTED TO THIS RN THAT SHE TAKES HER ZOFRAN, 8 MG BID AT 0500 AND 1700, REQUESTED THAT HER ZOFRAN ORDER BE CHANGED TO REFLECT THAT. NOTIFIED DR. DOLAN OF PT'S REQUEST. DR. DOLAN REPORTED TO THIS RN THAT HE ATTEMPTED TO PLACE ORDER FOR THIS, BUT WAS ONLY ABLE TO PLACE ORDER FOR THIS PRN, WITH NOTED TO GIVE AT 0500 AND 1700. SPOKE WITH OSWALDO, PHARMACIST, WHO ADJUSTED THIS ORDER TO REFLECT THAT IT IS A SCHEDULED ORDER NOT PRN, SCHEDULED AT 0500 AND 1700.
--- NOTE | 2018-09-14 11:19 | NUR ---
PT SITTING UP IN RECLINER. REPORTS PAIN IMPRVED, RATES PAIN 6/10, WHICH IS PT'S PAIN GOAL. PT PREPARING TO AMBULATE WITH [facility].
--- NOTE | 2018-09-14 14:10 | NUR ---
PT SITTING UP IN RECLINER. PERSONAL SUPPLIES AND CALL LIGHT IN REACH. DENIES NEEDS.
--- NOTE | 2018-09-14 14:30 | NUR ---
PATIENT WITH POOR APPETITE. SHE HAS THRUSH AND METASTATIC VULVAR CANCER. SAID SHE MISSES FOOD. TASTES HAVE CHANGED. SHE IS ON A REGULAR DIET. LOVES OYSTERS, SO SHE WILL ASK HER BROTHER TO COOK SOME AND BRING SOME IN TO HER. SHE WILL TRY A CHOCOLATE ENSURE FOR DINNER. I HIGHLY RECOMMENDED IT JUST TO TRY. IF SHE DOESN'T LIKE IT SHE DOESN'T HAVE TO DRINK IT. SHE IS NOT INTERESTED IN ANY HIGH CALORIE HIGH PROTEIN HANDOUTS AT THIS TIME. WILL REMAIN AVAILABLE IF NEEDED.
--- NOTE | 2018-09-14 14:44 | NUR ---
PT SITTING IN CHAIR, PT ALERT AND ORIENTED. I NOTICED A LARGE AMOUNT OF FLUID POOLED UP AT PT'S FEET AND FEET IN FLUID.SHARED WITH SE FRANCIS, SHE INFORMED ME IT IS WEEPING FROM HER LEGS, NOT URINE. WILL CONTINUE TO FOLLOW NEENDED
--- NOTE | 2018-09-14 15:49 | NUR ---
PER KIMBERLY CHI, PT TOOK SHOWER WITH MINIMAL TO 1 PERSON ASSIST. REPORTED THAT PT WASHED HER OWN BODY, BUT NEEDED ASSISTANCE WITH WASHING HER HAIR, AND AFTER SHOWER NEEDED ASSISTANCE WITH COMBING HER HAIR. PT NOW IN BED, BROTHER AT BEDSIDE.
--- NOTE | 2018-09-14 17:41 | NUR ---
PT UP WITH 1 PERSON ASSIST. TOOK SHOWER THIS SHIFT. BILATERAL LOWER LEGS EDEMATOUS, WEEPING CLEAR FLUID. PT ALERT, ORIENTED X 4. CAN BE FORGETFULL AT TIMES. IV SL. ABDOMEN DISTENDED, PT HAS CHRONIC NAUSEA. NOW HAS ORDER FOR SCHEDULED ZOFRAN Q 12 HOURS, PT REPORTS IS HER HOME SCHEDULE. APETITE FAIR. HAS THRUSH IN MOUTH, USING NYSTATIN.
--- NOTE | 2018-09-14 19:05 | NUR ---
SHIFT REPORT RECEIVED. DAY SHIFT RN ASSISTED PATIENT TO RECLINER FROM BS. CALL LIGHT PROVIDED. PATIENT DENIED FURTHER NEEDS. ROOM CLEANED UP AND GARBAGES EMPTIED BY THIS RN.
--- NOTE | 2018-09-14 21:35 | NUR ---
PATIENT UP IN RECLINER. BROTHER IN ROOM. PATIENT IS AAOX3, HOWEVER SHE WAS ASKING HER BROTHER QUESTIONS ABOUT TAKING CARE OF OTHER PATIENTS. ATTEMPT TO REORIENT PATIENT, THIS DID NOT MAKE SENSE. PATIENT STATES "I MUST HAVE BEEN DREAMING OR SOMETHING, I'M NOT SURE WHY I WAS THINKING THAT". PATIENT PROVIDED WITH SHCEDULED MEDS. SHE DENIES NAUSEA AT THIS TIME, STATES "I WAS SICK EARLIER BUT FINE NOW". ABD IS FIRM, BOWEL SOUNDS ACTIVE. LOWER EXTREMITIES CONTINUE TO HAVE 3+ EDEMA WITH A LARGE AMOUNT OF WEEPING. PATIENT DENIES ANY FURTHER NEEDS AT THIS TIME. CALL LIGHT IN REACH.
--- NOTE | 2018-09-14 23:04 | NUR ---
AROUND 2044 PATIENT CALLED TO USE THE TOILET. 1 PA USING WALKER. PATIENT PREFER TO BE UP IN THE CHAIR AFTER. THEN AROUND 2244 PATIENT CALLED TO USE THE BATHROOM. PATIENT IS IN BED NOW. LEGS UP WITH PILLOW UNDER. CALL LIGHT AND TABLE WITHIN REACH.
--- NOTE | 2018-09-14 23:09 | NUR ---
V/S AND I&O DONE AND CHARTED.
--- NOTE | 2018-09-15 02:45 | NUR ---
PATIENT APPEARS TO BE SLEEPING SOUNDLY. LEGS ELEVATED ON PILLOWS IN THE BED. FAMILY IN ROOM. CALL LIGHT IN REACH. RR 18.
--- NOTE | 2018-09-15 04:15 | NUR ---
PATIENT RESTING IN BED. WAKES EASILY. DENIES ANY NEEDS. CALL LIGHT IN REACH.
--- NOTE | 2018-09-15 06:54 | NUR ---
PATIENT SLEPT MOST OF THE NIGHT. REPORTS EMESIS X1, UNWITNESSED. ZOFRAN PER ORDER. NO PRN PAIN MEDS REQUIRES. PATIENT SL. URINE OUTPUT QS. 1PA W/FWW. LEGS WEEPING A SIGNIFICANT AMOUNT. BROTHER IN ROOM.
--- NOTE | 2018-09-15 07:15 | NUR ---
BEDSIDE HANDOFF REPORT RECEIVED FROM IVORY POLISHER RN. PT SLEEPING, LEFT UNDISTURBED.
--- NOTE | 2018-09-15 09:00 | NUR ---
PT RESTING IN BED. PT COMPLAINT FO NAUSEA, RECEIVED DOSE OF ZOFRAN THIS AM, TOLERATING REGULAR DIET AT THIS TIME. PT ON ROOM AIR, LUNG SOUNDS CLEAR. PT BOWEL TONES ACTIVE, PT REFUSED MIRALAX AND SENNA. PT REFUSEDD BUSPAR, EDUCATED ON INDICATION OF BUSPAR. PT SLAINE LOCKED. PT WITH EDEMA TO BLE, WEEPING. MORNING MEDICATIONS ADMINISTERED. PT DENIES OTHER NEEDS AT THIS TIME.
--- NOTE | 2018-09-15 09:59 | NUR ---
PT'S BROTHER STOPPED THIS RN IN [place] TO COMPLIMENT KIMBERLY CHI FROM YESTERDAY FOR STAYING PAST HER SHIFT TO SHOWER THE PT. STATES THAT BOTH HE AND HIS SISTER GREATLY APPRECIATED IT.
--- NOTE | 2018-09-15 10:18 | NUR ---
CONVERSATION WAS HAD WITH AWILDA SAEZ DNS AT [facility] AND SHE CONFIRMS THAT THEY WILL TAKE PT.
--- NOTE | 2018-09-15 11:02 | NUR ---
PT SITTING IN CHAIR. DISCUSSES NAUSEA WITH PT, PT INSTRUCTED TO CALL WHEN FEELING NAUSEATED. PT LEGS ELEVATED. PT DENIES OTHER NEEDS AT THIS TIME.
--- NOTE | 2018-09-15 12:00 | NUR ---
PT STATES SHE DOES NOT FEEL WELL ENOUGH TO GO TO [facility] TODAY "I JUST WANT ONE MORE DAY." DR DOLAN STATES PT HR IS TACHY AND SHE IS HAVING A LOT OF PAIN, AND HE SAYS WE WILL WAIT 1 MORE DAY. I HAVE ATTEMPTED TO GET A HOLD OF [facility], LEFT A MESSAGE ON MAIN ADM COORDINATOR PHONE AND LEFT MESSAGE ON AWILDA'S PHONE.
--- NOTE | 2018-09-15 13:45 | NUR ---
PT SITTING IN CHAIR. PT RATING PAIN BETTER 7.5/10 AND COMING DOWN. PT CONTINUES TO FEEL SLIGHTLY NAUSEATED, BOWEL TONES ACTIVE. BLE CONTINUE TO BE WEEPING. NO ACUTE CHANGES. PT DENIES NEEDS AT THIS TIME.
--- NOTE | 2018-09-15 15:50 | NUR ---
HAVE LEFT SEVERAL MESSAGES AT T BOTH WITH THE PERSON THAT ANSWERS THE PHONE, ALSO ON [phone]. NO RESPONSE. FINALLY GOT THRU TO AWILDA GARCIA AND LET HER KNOW THAT PT WOULD NOT BE COMING TODAY.
--- NOTE | 2018-09-15 16:03 | NUR ---
PT SITTING IN CHAIR. PT GIVEN SCHEDULED NYSTATIN SWISH AND SWALLOW. PT DENIES NEEDS AT THIS TIME.
--- NOTE | 2018-09-15 16:31 | NUR ---
PATIENT CALLS TO USE BATHROOM. PATIENT SITTING UP IN CHAIR. PATIENT WALKS TO BATHROOM USING A WALKER. ONE PERSON ASSISTING. PATIENT BACKS TO CHAIR. CALL LIGHT WITHIN REACH. NO OTHER NEEDS AT THIS TIME
--- NOTE | 2018-09-15 17:45 | NUR ---
PT ON ROOM AIR. PT WITH NAUSEA VOMITING THIS AM, SCHEDULED ZOFRAN. PT PAIN WELL MANAGED WITH MS CONTIN. PT WITH BLE EDEMA AND WHEEPING. PT 1PA TO AMBULATE, P.T./O.T. IV FLUIDS INFUSING LR AT 125 ML/HR. PT VOIDING QS.
--- NOTE | 2018-09-15 20:01 | NUR ---
GOT REPORT AND PATIENT GOT UP FROM THE BED SIDE ARMCHAIR RECLINER AMBULATED WITH WALKER AND 1PSBA AND THEN BACK INTO BED, LEGS ELEVATED ON 2 PILLOWS. PATIENT NOT C/O ANY PAIN.
--- NOTE | 2018-09-16 01:31 | NUR ---
ASSISTED PATIENT TO THE BATHROOM AND BACK TO BED USING WALKER. CALL LIGHT AND SIDE TABLE WITHIN REACH.
--- NOTE | 2018-09-16 03:30 | NUR ---
PATIENT SITTING IN BED WATCHING TV AND READING THE PAPER. NO NEEDS AT THIS TIME.
--- NOTE | 2018-09-16 06:35 | NUR ---
SEFERINO'S PAIN IS DOWN TO 6/10 AND NAUSEA GONE AFTER 15MG OF MORPHINE PO AND 8MG PO ZOFRAN AT 0408. PATIENT WAS AWAKE MOST OF THE NIGHT READING PAPERS AND WATCHING TV. WENT TO THE RESTROOM MULTIPLE TIMES. PATIENT SAID HER PAIN IS USUALLY AN 8-9/10 FOR YEARS SO SHE WAS VERY HAPPY WITH 6/10. CONTINUES TO WATCH TV AT THIS TIME.
--- NOTE | 2018-09-16 07:15 | NUR ---
BEDSIDE HANDOFF REPORT RECEIVED FROM J2EE APPLICATION DEVELOPER RN. PT SLEEPING, LEFT UNDISTURBED. LR INFUSING AT 125 ML/HR.
--- NOTE | 2018-09-16 07:43 | NUR ---
PATIENT RESTING AT THIS TIME, EYES CLOSED. FAMILY IN ROOM. SE LARIOS REQUESTED TO ALLOW PATIENT TO CONTINUE TO SLEEP AT THIS TIME. CALL LIGHT IN REACH.
[2018-09-16] MEDS ORDERED: DOXYCYCLINE HY100 MG PO (09:17)
[2018-09-16] MEDS ORDERED: NYSTATIN100000 UN1 PO (09:18)
[2018-09-16] MEDS ORDERED: MORPHINE SULFAT15 MG PO (09:19)
[2018-09-16] MEDS ORDERED: MORPHINE SULFAT30 M2 PO (09:19)
[2018-09-16] MEDS ORDERED: HEALTHYLAX17 GM PO (09:19)
[2018-09-16] MEDS ORDERED: SENNA PLUS TAB1 EACH PO (09:19)
--- NOTE | 2018-09-16 09:30 | NUR ---
PT SITTING ON EDGE OF BED,E ATING BREAKFATS. PT RATINGPAIN 01/06 TO HIP, PROVIDED WITH SCHEDULED MS CONTIN. PT ON ROOM AIR, LUNG SOUNDS CLEAR. PT TACHYCARDIC, METOPROLOL GIVEN. PT DENIES NAUSEA, BOWEL TONES ACTIVE, REFUSED SENNA AND MIRALAX. PT WITH WHEEPING EDEMA TO BLE, 3+, PULSES FAINT. IV SALINE LOCKED. DISCUSSED PLAN OF CARE FOR THE DAY, PT ASKING WHAT TIME SHE WILL BE DISCHARGED. PT DENIES OTHER NEEDS AT THIS TIME.
--- NOTE | 2018-09-16 10:40 | NUR ---
PT ASSISTED TO BED FROM BATHROOM. PT LAYING FLAT, LEGS CONTINUE TO WHEEP. PT DENIES OTHER NEEDS AT THIS TIME.
--- NOTE | 2018-09-16 10:47 | NUR ---
IN ROOM AT 0950 TO TALK WITH PT AND HER BROTHER LEXI THURMAN WHO IS ALSO IN THE ROOM WITH PT. WE DISCUSSED WHAT RAZIA'S PLANS ARE FOR AFTER THE TIME THAT SHE DOES REHAB. SHE STATES SHE WILL HAVE MEDICAID PROVIDED 24 HOUR A DAY CAREGIVERS FOR HOSPICE. I EXPLAINED THAT TO MY KNOWLEDGE MEDICAID DOES NOT SUPPLY 24 HOUR CARE TO HOSPICE. I INFORMED HER AND LEXI THAT THEY SHOULD START TO WORK ON GETTING HER MEDICAID FORMS FILLED OUT AND SEE WHEN AND WHAT THEY NEED MORE FROM YOU AND THAT YOU MAY BE ABLE TO GET AN EVAL FROM THEM SOONER WHILE YOU ARE AT [facility]. SHE STATED THAT SHE UNDERSTOOD THAT THEY WOULD PROVIDE CARE. I TOLD HER THAT SHE MAY HAVE MISUNDERSTOOD, MEDICAID IF SHE QUALIFIES MAY BE ABLE TO ASSIST IN PAYING FOR HOUSING AT ONE OF THE ASSISTED LIVING FACILITIES OR ADULT FOSTER HOME. SHE DID SEEM SOME WHAT INTERESTED IN THE POSS OF HOMELIKE SETTINGS IN THE [place] OR [facility]. HER BROTHER STATED HE WILL GO TO [facility] AND START THAT BALL ROLLING. PT AND BROTHER DENIED MORE QUESTIONS AT THIS TIME. WILL CONT TO FOLLOW PT DURING HER STAY IN THE HOSPITAL. PT STATES THAT HER FRIEND ZONIA MAY BE CALLING AND ASKING QUESTIONS, AND PT STATES THAT SHE IS HER POA AND RAZIA WANTS ME TO TALK TO HER.
--- NOTE | 2018-09-16 11:09 | NUR ---
MEDICATION GIVEN ORDERED (SEE MAR). PER REQUEST OF PRIMARY NURSE. CASE MANAGMENT IN ROOM
--- NOTE | 2018-09-16 11:50 | NUR ---
FAXED ORDERS AND PASRR TO [facility]. TALKED TO NADEEM AND HE CALLED BACK AND STATED THAT THE ORDERS WERE GOOD WITH THE EXCEPTION OF THE IVF DR HAD WRITTEN FOR AND HE SAID SHE WOULD HAVE TO HAVE A PICC LINE FOR THAT. DR ASHRAF STATED SHE DID NOT NEED TO HAVE THE IVF==SO HE DC'D IT.
--- NOTE | 2018-09-16 13:41 | NUR ---
PT SITTING IN BED, L LEG ON PAD TO CATCH DRAINAGE. PT PLEASANT, LEG APPEARS TO HAVE IMPROVED. PT STATED THAT "I AM JUST HOLDING MY OWN", AND I TOOK THAT TO MEAN THAT SHE DIDNOT FEEL SHE WAS IMPROVING. PT THANKED ME FOR VISIT, EXTENDED A VISIT. WILL FOLLOW NEEDED
== END 2018-09-16 11:35 | DRG 683 ==
LOC: ED 20:18 → MS 20:19
PROVIDERS: ADMIT Student in an Organized Health Care Education/Training Program
DX: N17.9 Acute kidney failure, unspecified (principal); C79.9 Secondary malignant neoplasm of unspecified site; L03.115 Cellulitis of right lower limb; E86.0 Dehydration; C51.9 Malignant neoplasm of vulva, unspecified; G89.4 Chronic pain syndrome; I10 Essential (primary) hypertension; F41.8 Other specified anxiety disorders; R00.0 Tachycardia, unspecified; D72.829 Elevated white blood cell count, unspecified; Z66 Do not resuscitate; Z79.891 Long term (current) use of opiate analgesic; Z79.52 Long term (current) use of systemic steroids; Z79.899 Other long term (current) drug therapy; Z88.2 Allergy status to sulfonamides; Z88.8 Allergy status to other drugs, medicaments and biological substances
CPT/HCPCS: 36415; 80048; 80053; 81001; 83735; 85025; 97110; 97116; 97163; 97165; 99285; 99406; J1650; J2270; J2405; J7030; J7040; J7120; J7512

== ENCOUNTER 2018-09-19 18:18 | Emergency (ER) | payer MEDICARE, MEDICAID ==
[~2018-09-19] VITALS: Ht 160 cm; Wt 64.9 kg
--- OUTSIDE RECORDS SUMMARY | ~2018-09-19 | XMS | Encounter Summary ---
Demographics + + + | Address | [address] | | | [place] [address] | + + + | Home Phone | | + + + | Preferred Language | Unknown | + + + | Marital Status | Single | + + + | Sabianism Affiliation | Unknown | + + + | Race | Unknown | + + + | Ethnic Group | Unknown | + + + Author + + + | Author | [facility] [employer] | + + + | Organization | [facility] [employer] | + + + | Address [...] Team Providers + +------+ + | Care Production Supervisor Trainee Name | Role | Phone | + [...] | | 2019 | on Only | [place] [address] | [address] | Dr. Kia Callahan) | | | | [address] | | | | | | [place] [address] | | | | | | [phone] | | | +--------+ + + + [...] [address] | | | | | | [place] [address] | | | | | | [phone] | | | | | | | [...] + + + + + | Specific [place], [place] | 1.015 | 1.005 - 1.030 [...]
--- OUTSIDE RECORDS SUMMARY | ~2018-09-19 | XMS | Clinical Summary ---
Demographics + + + | Address | [address] | | | [place] [address] | + + + | Home Phone | | + + + | Preferred Language | Unknown | + + + | Marital Status | Single | + + + | Alevism Affiliation | Unknown | + + + | Race | Unknown | + + + | Ethnic Group | Unknown | + + + Author + + + | Author | [facility] [employer] | + + + | Organization | [facility] [employer] | + + + | Address [...] Team Providers + +------+ + | Care Athletic Shoe Designer Name | Role | Phone | [...] | 12/11/ | Office | | Kalpesh Lesetr, | | | 2019 | Visit | | [facility]AN [facility] | | | | | | [address] | | | | | | [place] [address] | | | | | | [phone] | | | | | | | [...] + + + + + | Specific [place], [place] | 1.015 | 1.005 - 1.030 [...] +------+-------+ + | MEDICARE | MEDICA | [id number] | | | [address] | | | RE | | | | [place] [address] | | | IP-OP | | | [...] | | al/Fam | | 1955 | [phone] | [place] | | | lydia | | | [phone] | [phone] | + +--------+ +--------+ + +
--- OUTSIDE RECORDS SUMMARY | ~2018-09-19 | XMS | Clinical Summary ---
Demographics + + + | Address | [address] | | | [place] [address] | + + + | Home Phone | | + + + | Preferred Language | Unknown | + + + | Marital Status | Single | + + + | Taoist Affiliation | Unknown | + + + | Race | Unknown | + + + | Ethnic Group | Unknown | + + + Author + + + | Author | [facility] [employer] | + + + | Organization | [facility] [employer] | + + + | Address [...] Team Providers + +------+ + | Care Child Guidance Counselor Name | Role | Phone | + [...] [address] | | | | | | [place] [address] | | | | | | [phone] | | | | | | | [...] + + + + + | Specific [place], [place] | 1.015 | 1.005 - 1.030 [...] +------+-------+ + | MEDICARE | MEDICA | [id number] | | | [address] | | | RE | | | | [place] [address] | | | IP-OP | | | [...] | | al/Fam | | 1955 | [phone] | [place] | | | lydia | | | [address] | [phone] | + +--------+ +--------+ + +
--- OUTSIDE RECORDS SUMMARY | ~2018-09-19 | XMS | Encounter Summary ---
Demographics + + + | Address | [address] | | | [place] [address] | + + + | Home Phone | | + + + | Preferred Language | Unknown | + + + | Marital Status | Single | + + + | Worship Affiliation | Unknown | + + + | Race | Unknown | + + + | Ethnic Group | Unknown | + + + Author + + + | Author | [facility] [employer] | + + + | Organization | [facility] [employer] | + + + | Address [...] Team Providers + +------+ + | Care Plaster Patternmaker Name | Role | Phone | + [...] | | 2019 | on Only | [place] [address] | Dr. Kia Callahan) | | | | [address] | | | | | | [place] [address] | | | | | | [phone] | | | +--------+ + + + [...] [address] | | | | | | [place] [address] | | | | | | [phone] | | | | | | | [...] + + + + + | Specific [place], [place] | 1.015 | 1.005 - 1.030 [...]
[~2018-09-19 18:18] MED LIST changes: +BUSPIRONE HCL30 MG PO; +DOXYCYCLINE HY100 MG PO; +HEALTHYLAX17 GM PO; +METOPROLOL SUCC50 MG PO; +MORPHINE SULFAT15 MG PO; +NYSTATIN100000 UN1 PO; +OMEPRAZOLE40 MG PO; +PREDNISONE2.5 MG PO; +SENNA PLUS TAB1 EACH PO
--- OUTSIDE RECORDS SUMMARY | 2018-09-19 18:20 | XMS ---
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 - Has Care Guidelines - PDMP - [facility] - 2 Visits in 30 Days CARE PROVIDERS KULWINDER DILLON Student in an Organized Health Care 09/01/2018-Current Education/Training Program PHONE: [phone] Babar has no Care Guidelines for this patient. Care History Medical/Surgical 09/02/2018 [facility] - Patient is currently established with [facility]. If patient is seen in the ED during business hours. Please contact CHWs at [facility]. Care Recommendation: This patient has had 5 [...] providing care. E.D. VISIT COUNT (12 MO.) 4 [facility] TOTAL 4 NOTE: Visits indicate total known visits. ED/UCC VISIT TRACKING (12 MO.) 09/19/2018 18:18 [facility] TYPE: Emergency COMPLAINT: - FALL 09/11/2018 20:18 [facility] TYPE: Emergency COMPLAINT: - NAUSEA 09/03/2018 10:24 [facility] TYPE: Emergency COMPLAINT: - VOMITING DIAGNOSES: - Diaphragmatic hernia without obstruction or gangrene - Nicotine dependence, unspecified, uncomplicated - Secondary malignant neoplasm of unspecified lung - Other intermediate card tender (current) drug therapy - Vomiting, unspecified - Systemic lupus erythematosus, unspecified - Allergy status to sulfonamides status - Essential (primary) hypertension - Dehydration - Allergy status to other drugs, medicaments and biological substances status - Squamous cell carcinoma of skin of other part of trunk 09/01/2018 10:38 [facility] TYPE: Emergency COMPLAINT: - DIFFICULTY BREATHING DIAGNOSES: - oil heaterman (current) use of opiate analgesic - Dehydration - Essential (primary) hypertension - Allergy status to other drugs, medicaments and biological substances status - Allergy status to sulfonamides status - Malignant neoplasm of pelvis - Other intermediate card tender (current) drug therapy - Epigastric pain - Nicotine dependence, unspecified, uncomplicated - Other ascites INPATIENT VISIT TRACKING (12 MO.) 09/12/2018 16:38 [facility] TYPE: Medical Surgical COMPLAINT: - DEHYDRATION DIAGNOSES: - Acute kidney failure, unspecified - Malignant neoplasm of vulva, unspecified - Do not resuscitate - Secondary malignant neoplasm of unspecified site - Allergy status to other drugs, medicaments and biological substances status - oil heaterman (current) use of opiate analgesic - Tachycardia, unspecified - oil heaterman (current) use of opiate analgesic - Other intermediate card tender (current) drug therapy - Do not resuscitate - Secondary malignant neoplasm of unspecified site - Essential (primary) hypertension - Cellulitis of right lower limb - Cellulitis of right lower limb - Dehydration - Essential (primary) hypertension - Other specified anxiety disorders - Dehydration - Malignant neoplasm of vulva, unspecified - Tachycardia, unspecified - oil heaterman (current) use of systemic steroids - Chronic pain syndrome - Allergy status to sulfonamides status - Other specified anxiety disorders - Elevated white blood cell count, unspecified - oil heaterman (current) use of systemic steroids - Allergy status to other drugs, medicaments and biological substances status - Other intermediate card tender (current) drug therapy - Elevated white blood cell count, unspecified - Chronic pain syndrome - Allergy status to sulfonamides status [email or web address]
== END 2018-09-19 20:10 | disposition home or self-care (01) ==
LOC: ED 18:18
DX: M79.662 Pain in left lower leg (principal); M25.552 Pain in left hip; C51.9 Malignant neoplasm of vulva, unspecified; C78.02 Secondary malignant neoplasm of left lung; C78.01 Secondary malignant neoplasm of right lung; M32.9 Systemic lupus erythematosus, unspecified; I10 Essential (primary) hypertension; F17.200 Nicotine dependence, unspecified, uncomplicated; Z88.2 Allergy status to sulfonamides; Z88.8 Allergy status to other drugs, medicaments and biological substances; Z79.899 Other long term (current) drug therapy; Z79.52 Long term (current) use of systemic steroids; W05.0XXA Fall from non-moving wheelchair, initial encounter
CPT/HCPCS: 99283